=== PATIENT | female | born 1990 | race African-American/Black ===

== ENCOUNTER 2021-01-09 23:35 | Emergency (ER) | payer OTHER ==
[~2021-01-09] VITALS: Ht 170.2 cm; Wt 127.0 kg
[2021-01-09] MEDS ORDERED: VENTOLIN HFA INH8 GM INH (23:55)
[2021-01-10] MEDS ORDERED: APAP W/CODEINE1 TA2 PO (02:03)
[2021-01-10] MEDS ORDERED: IBUPROFEN 800800 M1 PO (02:03)
[2021-01-10 02:17] VITALS: BP 139/72
== END 2021-01-10 02:18 ==
LOC: ER 23:35
DX: K08.89 Other specified disorders of teeth and supporting structures (principal); A64 Unspecified sexually transmitted disease; J45.909 Unspecified asthma, uncomplicated; Z79.899 Other long term (current) drug therapy